=== PATIENT | male | born 1990 | race Hispanic/Latino ===

== ENCOUNTER → 2018-05-09 | Day surgery (SDC) | payer OTHER ==
[2018-05-08 15:56] LABS: BASOPHILS % 0.4 % (0.0-1.0); EOSINOPHILS # (AUTO) 0.3 (0.0-0.4); HEMATOCRIT 48.6 % (38.2-49.6); HEMOGLOBIN 16.4 g/dL (14.0-18.0); LYMPHOCYTES # (AUTO) 2.7 (1.0-3.2); MEAN CORPUSCULAR HEMOGLOBIN 29.8 pg (28-32); MEAN CORPUSCULAR HGB CONC 33.7 g/dL (31-35); MEAN CORPUSCULAR VOLUME 88.2 fL (81-99); MONOCYTES # (AUTO) 0.9 (0.2-0.8); MONOCYTES % 9.2 % (4.4-11.3); PLATELET COUNT 219 x10e3/uL (140-360); RED BLOOD COUNT 5.51 x10e6/uL (4.3-5.7); RED CELL DISTRIBUTION WIDTH 12.1 % (11.7-14.4)
[2018-05-08 16:57] LABS: ANION GAP 12.6 mmol/L (8-16); BLOOD UREA NITROGEN 15 mg/dL (7-26); BUN/CREATININE RATIO 15 (6-25); CALCIUM 9.6 mg/dL (8.4-10.2); CARBON DIOXIDE 28 mmol/L (22-29); CHLORIDE 98 mmol/L (98-107); CREATININE, SERUM 1.03 mg/dL (0.72-1.25); EST GLOMERULAR FILTRATION RATE > 60 ML/MIN (60-); GLUCOSE 96 mg/dL (74-118); POTASSIUM 3.6 mmol/L (3.5-5.1); SODIUM 135 mmol/L (136-145)
[~2018-05-09] MED LIST: BETAMETHASONE DISODIUM PHOS 6 MG/ML VIAL ONE; BUPIVACAINE HCL 0.5% INJ 30 ML VIAL INJ ONE; CEFAZOLIN SOD 2 GM/D5W 50ML 50 ML IV ONE; DEXAMETHASONE SOD PHOS INJ 4 MG/ML VIAL ONE; FENTANYL CITRATE/PF 100MCG/2 ML INJ ONE; KETOROLAC TROMETHAMINE 30 MG/ML VIAL ONE; LIDOCAINE HCL 1% LOCAL INJ 20 ML VIAL ONE; LIDOCAINE HCL 2% LOCAL INJ 5 ML SDV VIAL INJ ONE; MIDAZOLAM HCL 2 MG/2 ML VIAL ONE; MUPIROCIN 2% OINT 22 GM TUBE ONE; ONDANSETRON HCL INJ 2 MG/ML VIAL ONE; PROPOFOL IV EMULSION 10 MG/ML 20 ML VIAL ONE; SEVOFLURANE INHAL SOLN 250 ML PEN BTL ONE
--- NOTE | 2018-05-09 09:27 | Diagnostic Imaging Report ---
PROCEDURE:X-RAY LEFT FOOT, TWO VIEWS COMPARISON:None. INDICATIONS:STATUS POST LEFT FOOT SURGERY FINDINGS: See conclusion. CONCLUSION: AP and lateral post-operative views of the left foot with overlying bandage material show post-surgical changes of a bunionectomy and arthroplasty with wire and screw through the distal first metatarsal and a K-wire through the 4th digit. There is surrounding soft-tissue swelling consistent with recent surgery. Please refer to performing physician's notes for full details of this procedure. Jose M Lopez D.O. Dictated by: Jose M Lopez D.O. on 05/09/2018 at 9:36 Electronically approved by: Jose M Lopez D.O. on 05/09/2018 at 9:36
[2018-05-09 09:30] VITALS: BP 141/87
--- NOTE | 2018-05-09 10:10 | Operative Report ---
DATE OF PROCEDURE: May 09, 2018 PREOPERATIVE DIAGNOSES: 1. Painful hallux valgus deformity, left foot. 2. Painful contracted hammertoe, fourth digit, left foot. 3. Painful contracted hammertoe, fifth digit, left foot. POSTOPERATIVE DIAGNOSES: 1. Painful hallux valgus deformity, left foot. 2. Painful contracted hammertoe, fourth digit, left foot. 3. Painful contracted hammertoe, fifth digit, left foot. OPERATIVE PROCEDURES: 1. Hermes bunionectomy with screw fixation, left foot. 2. Arthroplasty, fourth digit with Man wire fixation of fourth digit, left foot. 3. Arthroplasty, fifth digit. 4. Intraoperative use of fluoroscopy. 5. Trigger point shot of cortisone. 6. Application of posterior splint. ANESTHESIA: General. HEMOSTASIS: Pneumatic thigh tourniquet at 350 mmHg. PROCEDURE IN DETAIL: Patient was taken into the operating room and placed on the operating room table in supine position. Following induction of general anesthesia by the anesthesiologist, Webril wraps were placed on the patient's left thigh, followed by application of left thigh tourniquet. The left lower extremity was then prepped and draped in the usual aseptic manner, and the following procedures were then performed: Procedure #1: Hermes bunionectomy with screw fixation, left foot. Attention was directed to the dorsomedial aspect of the first MPJ where a 6-cm linear incision was performed. Incision was deepened down to the joint capsule. Longitudinal capsulotomy was then performed exposing dorsomedial exostosis of the first metatarsal head. Via use of an oscillating saw, dorsomedial exostosis was excised from the operation site in toto. A first interspace release was then performed releasing the adductor tendon release and the fibular sesamoidal ligament to allow for proper reduction of the laterally deviated left great toe. Attention was redirected back to the medial aspect and a V-osteotomy was performed to the first metatarsal head. The capital fragment was then transpositioned laterally upon adequate surgical and anatomic reduction. Utilizing proper AO technique, a 2.0, 16-mm cortical screw in conjunction with a buried 0.045 K-wire was used to achieve stability at the osteotomy site. All redundant bone medially was excised via the use of an oscillating saw and rotating bur. Procedures #2 and #3: Arthroplasty, fourth and fifth digits with K-wire fixation of the fourth. Attention was directed to the dorsal aspect of the above-mentioned toes where a 3-cm linear incision was performed. Incision was deepened down to the joint capsule. A transverse capsulotomy was then performed exposing the head of the proximal phalanges. Via use of an oscillating saw, head of the proximal phalanges were excised from the operation site in toto. All rough and bony edges were rasped smooth. Fourth toe was still noted to be contracted, so a 0.045 K-wire was introduced up to the metatarsophalangeal joint to achieve proper anatomic reduction. Procedure #4: Intraoperative use of fluoroscopy was then used to make sure proper alignment and fixation was achieved. Closure was then obtained utilizing 3-0 Vicryl, 4-0 Vicryl, and 4-0 nylon for capsule, subcutaneous tissue, and skin respectively after properly and copiously flushing the areas with saline. Procedure #5: Trigger point shot of cortisone was then given to the first and fourth interspace of the left foot. Then, approximately 18 mL of 0.5% plain Marcaine plus 5 mL of 1% Xylocaine plain were used to achieve local anesthesia of above-mentioned surgical area. Sterile dressing was applied. Upon releasing the thigh tourniquet, blood hyperemia was noted immediately to all digits of the patient's left foot. Procedure #6: Application of posterior splint. A properly placed posterior splint was then applied keeping the foot at 90 degrees with respect to the leg to try to prevent any type of postop complications. Patient was then transferred from the OR to recovery room with vital signs stable and neurovascular status intact. No intraoperative complications were encountered. Blood loss from the surgery was minimal. Patient is to remain nonweightbearing with the aid of crutches, keep his foot elevated, is to apply an ice pack to the ankle joint area. Job#: [id number]
== END | disposition home or self-care (01) ==
LOC: OR 05:27
PROVIDERS: ATTEND Podiatrist Foot Surgery
DX: M20.12 Hallux valgus (acquired), left foot (principal); M20.42 Other hammer toe(s) (acquired), left foot; F17.290 Nicotine dependence, other tobacco product, uncomplicated
CPT/HCPCS: 28285 ×2; 28296; 36415; 73620; 80048; 85025; C1713; J0720; J1100; J1885; J2001 ×2; J2250; J2405; J0690